=== PATIENT | male | born 1970 | race Caucasian/White ===

== ENCOUNTER 2024-01-06 07:15 | Emergency (ER) | payer SELFPAY ==
[~2024-01-06] VITALS: Ht 170.2 cm; Wt 99.8 kg
[2024-01-06 07:25] VITALS: BP_SYST 143; PULSE 80; RESP 16; TEMP 97.1; O2SAT 99
[2024-01-06] MEDS: PROCHLORPERAZINE EDISYLATE 10 MG/2 ML VIAL IVP ONE (07:50)
[2024-01-06] MEDS: KETOROLAC TROMETHAMINE 15 MG VIAL IVP ONE (07:50)
[2024-01-06] MEDS ORDERED: NAPR-1172 PO (08:49)
[2024-01-06 09:05] VITALS: BP_SYST 136; PULSE 75; RESP 18; TEMP 97.1; O2SAT 100
== END 2024-01-06 09:05 | disposition home or self-care (01) ==
LOC: SED 07:15
DX: R51.9 Headache, unspecified (principal); I10 Essential (primary) hypertension; E78.5 Hyperlipidemia, unspecified; Z79.899 Other long term (current) drug therapy
CPT/HCPCS: 99285; 96374; 70450; 96375; J1885; J0780